=== PATIENT | male | born 1975 | race Caucasian/White ===

== ENCOUNTER 2016-05-08 14:48 | Day surgery (SDC) | payer OTHER ==
[2016-05-07 14:01] VITALS: BMI 36.5
[2016-05-08] MEDS ORDERED: oxyCODONE HCL 5 MG TABLET PO PRN (15:05)
[2016-05-08] MEDS ORDERED: ONDANSETRON 4 MG/2 ML VIAL IVPUSH PRN (15:05)
[2016-05-08] MEDS ORDERED: LIDOCAINE 1%-EPI 1:100,000 30 ML MDV IJ ONE (17:07)
[2016-05-08] MEDS ORDERED: SODIUM BICARBONATE 8.4% 50 MEQ/50 ML VIAL ONE (17:07)
[2016-05-08] MEDS ORDERED: MIDAZOLAM HCL 2 MG/2 ML SINGLE DOSE VIAL ONE (17:11)
[2016-05-08] MEDS ORDERED: PROPOFOL 20 ML ONE ×4 (17:22→17:53)
[2016-05-08] MEDS ORDERED: oxyCODONE HCL 5 MG TABLET ONE (18:46)
[2016-05-08 19:44] VITALS: TEMP 98.4
[2016-05-08 19:46] VITALS: BP 128/80; PULSE 72
--- NOTE | 2016-05-09 20:10 | OP ---
DATE OF OPERATION: 05/08/2016 PREOPERATIVE DIAGNOSIS: Right hand laceration with laceration of index finger extensor indicis proprius and extensor digitorum communis. POSTOPERATIVE DIAGNOSIS: Right hand laceration with laceration of index finger extensor indicis proprius and extensor digitorum communis. OPERATIVE PROCEDURE: 1. Right extensor indicis proprius repair. 2. Right extensor digitorum communis index finger repair. SURGEON: Tay French MD PROCUREMENT PROFESSIONAL LOGISTICS: TIFFANY Qureshi ANESTHESIA: Local. COMPLICATIONS: None. ESTIMATED BLOOD LOSS: Minimal. INDICATIONS FOR PROCEDURE: The patient is a 41-year-old male with the above finding, indicated for operative treatment. Risks, benefits, alternatives were discussed with patient at length, proper informed consent was obtained. PROCEDURE: After proper identification of patient and correct operative site, patient was brought to the operating room, placed supine on the table, all prominences well padded. Light sedation was given by the anesthesiologist. Local field block was given with 1% lidocaine with epinephrine and bicarbonate. After the anesthetic took, the right upper extremity was prepped and draped in usual sterile fashion. Patient's prior laceration over the dorsal aspect of the hand was enlarged both proximally and distally. Blunt and sharp dissection was performed to the subcutaneous tissues, taking care to protect neurovascular structures. Hemostasis was achieved with bipolar electrocautery. Both the extensor digitorum communis and extensor indicis proprius tendons were found and they were repaired together using a 4-0 FiberWire core suture. A total of 8 strands of core suture were placed through, which provided stable fixation of the EIP and EDC tendons. The patient was shown his hand and asked to flex and extend his finger, and normal excursion of the tendon occurred and he was able to hyperextend independently the index finger. There was no tension on the repair. The wound was irrigated with copious amounts of warm saline and repaired with 4-0 Vicryl and 4-0 nylon suture. Sterile dressing and splint were placed. Patient was reversed from anesthesia and brought to recovery room in stable condition. He tolerated procedure well. Amilcar Mcconnell, the data analysis assistant, was integral throughout the procedure. The procedure could not have been performed without a skilled operative data analysis assistant. Mauricio [id number]
== END 2016-05-08 19:20 | disposition home or self-care (01) ==
LOC: FASU 14:48
PROVIDERS: ATTEND Orthopaedic Surgery Hand Surgery
PROC: 0LQ70ZZ Repair Right Hand Tendon, Open Approach (ICD-10-PCS; principal; 2016-05-08 17:20)
DX: S66.320A Laceration of extensor muscle, fascia and tendon of right index finger at wrist and hand level, initial encounter (principal); X58.XXXA Exposure to other specified factors, initial encounter; Y93.9 Activity, unspecified; Y92.9 Unspecified place or not applicable
CPT/HCPCS: 94760